=== PATIENT | male | born 1975 | race Caucasian/White ===

== ENCOUNTER 2016-12-19 07:33 | Emergency (ER) | payer BC, MEDICAID ==
[~2016-12-19] VITALS: Ht 182.9 cm; Wt 133.2 kg
[2016-12-19 08:28] VITALS: BP 136/94
== END 2016-12-19 08:42 | disposition home or self-care (01) ==
LOC: ED 07:37
DX: S46.911A Strain of unspecified muscle, fascia and tendon at shoulder and upper arm level, right arm, initial encounter (principal); S29.012A Strain of muscle and tendon of back wall of thorax, initial encounter; X50.9XXA Other and unspecified overexertion or strenuous movements or postures, initial encounter; Y93.89 Activity, other specified; Y92.009 Unspecified place in unspecified non-institutional (private) residence as the place of occurrence of the external cause
CPT/HCPCS: 73030; 99283

== ENCOUNTER → 2016-12-23 | Outpatient (CLI) | payer BC | LOC: RAD 07:10 | PROVIDERS: ATTEND Physician Assistant Surgical | DX: Z00.00 Encounter for general adult medical examination without abnormal findings (principal) | CPT/HCPCS: 70140 ==

== ENCOUNTER 2017-02-09 13:00 | Outpatient (RCR) | payer BC ==
--- NOTE | 2017-01-09 13:24 | PT/OT/ST INITIAL EVALUATION ---
Department of Health and Human Services Form Approved [facility] Care Financing Administration OMB No. [id number] PLAN OF CARE/ASSESSMENT FOR OUTPATIENT REHABILITATION (Complete for Initial Claims Only) 1. PATIENT'S NAME Bayron Corona Sr. 2. ACC # [id number] 3. HICN NA 4. PROVIDER NO. [id number] 5. TYPE: PT 6. PRIOR HOSPITALIZATION NA 7. PRIMARY DX S46.011A-traumatic tear of the right rotator cuff 8. SECONDARY DX NA 9. ONSET DATE 12/18/2016 10. REFERRAL DATE 12/27/2016 11. SOC. DATE 12/29/2016 12. TIME OF EVAL 16:25 12. REFERRING PHYSICIAN PORSCHE Rizvi with Dr. Jose Ashby 13. CHARGES/UNITS Evaluation [address] [place] [address] [place] [address] iontophoresis 14. G CODES NA 15. PRIOR LEVEL OF FUNCTION; PERTINENT HISTORY (Prior therapy results, reason for referral.) S: Prior to therapy, the patient consented to today's evaluation and treatment. The patient is a 41-year-old male referred to therapy by PORSCHE Rizvi following a traumatic right rotator cuff tear. The patient reports on 12/18/2016, he was up on a ladder at home, his arm got pulled back overhead, and then snapped back with a 40-pound weight. He did hear a pop per his report. The patient would like to avoid surgery if possible. He did undergo an MRI of the right shoulder, which revealed a traumatic tear of the right supraspinatus tendon. The patient was in a sling for the first week and is no longer wearing this sling at this time. Primary Complaint: The patient's primary complaint at this time is impaired strength at the right hand as he has been able to regain full range of motion. 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 Current level of function: The patient did return to light duty this week; however, he is to avoid any heavy lifting overhead. Pain level: Current pain level is 2/10 at rest. The pain increases to 3 to 5/10 with activity present just proximal to the right acromion. Aggravating factors: The pain is aggravated by moving his shoulder out to the side or with functional external rotation. He denies any benefit from ice. Relieving factors: The pain is improved by using [place]. Past medical history: The patient had a left rotator cuff tear 6 years ago, which he was able to improve without surgical intervention, history of an injection in the right shoulder. He does note that he has been able to pop his shoulders out of socket bilaterally since he was a child. Current medications: The patient is taking [place], atorvastatin, tramadol and Flexeril. Activity level: Mid range. Personal health rating: Fair Patient's Goal: The patient's goal for physical therapy is to be able to go back and do his job again without limitations. 16. INITIAL ASSESSMENT/SAFETY PRECAUTIONS/MEDICAL COMPLICATIONS (Level of function at start of care. Be specific, use objective measures, list problems.) O: APPEARANCE AND OBSERVATION: Observation of the patient's posture reveals mild forehead positioning of the right humeral head in the socket. The patient does have significant muscle tone throughout which does appear to be normal for this individual. The patient demonstrates poor scapular stabilization with right shoulder movement, however, no significant scapular winging or tilting noted. PALPATION: Tenderness to palpation of the right parascapular musculature greatest at the mid trapezii and the rhomboids. RANGE OF MOTION/FLEXIBILITY: Cervical rotation is limited by 25% bilaterally. Flexion and extension are normal. Shoulder flexion on the right is 180 degrees, left is 180 degrees. Abduction on the right is 180 degrees and painful. Left 180 degrees. Bilateral shoulder internal and external rotation is equal and functional bilaterally, however, pain reported with right shoulder movements. STRENGTH: Bilateral shoulder flexion and abduction strength 5/5 from shoulder height down. Internal rotation strength on the right 4+/5, left 4+/5. Bilateral external rotation 5/5 . Bilateral flexion and extension of the elbow 5/5. TODAY'S TREATMENT: Consisted of educating the patient on the evaluation and the recommended treatment plan. Initiated an upper extremity strengthening program consisting of parascapular strengthening. 17. 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 He demonstrates poor concentric control of the right shoulder, as well as pain around the right shoulder and parascapular region. The patient does demonstrate mild rotator cuff weakness, greatest in shoulder internal and external rotation and poor scapular stabilization with upper extremity movements. The patient is currently on light duty at work , but would like to return to full duty as he progresses with muscle strength. OUTCOME ASSESSMENT: The patient scores a 47.7% disability on the QuickDASH index. SHORT TERM GOALS X4 WEEKS: 1. The patient will improve bilateral shoulder internal and external rotation to be 5/5. 2. The patient will demonstrate the ability to lift up to 20 pounds with proper scapular stabilization shoulder height or lower. 3. The patient will report pain no greater than a 2/10 with all right shoulder movement and not have to rely on pain medication. 4. The patient will improve his ability to perform overhead lifting tasks as recommended by patient's physician up to 40 pounds to be able to return to work with full duty. P: Plan to see this patient 2 times a week for 4 weeks to address poor scapular stabilization and right shoulder pain and muscle tightness around the parascapular region. Therapeutic interventions will include modalities as needed to address pain and muscle tightness, therapeutic exercise emphasizing proper scapular stabilization with shoulder movements, as well as progressive strengthening as the patient tolerates. Functional training, including work related tasks, neuromuscular reeducation emphasis on scapular stabilization. The patient was provided a home exercise program and this will be progressed as needed. Thank you for the referral of this patient. 18. FREQUENCY 2 times per week 19. DURATION 4 weeks 20. FUNCTIONAL LEVEL (End of claim period) 21. PHYSICIAN SIGNATURE ? ON FILE OR ENTER HERE: 22. DATE: I certify the need for these services furnished under this plan of care and if for partial hospitalization. 23. CERTIFICATION FROM THROUGH [facility][id number]
[~2017-02-09 13:00] MED LIST: ALBU8.5H6 IH; HYDR-3702 PO; NAPR500T3 PO; NO HOME MEDICATIONS; OSLT75C PO; PRCD5U GT
== END 2017-03-06 11:12 | disposition home or self-care (01) ==
LOC: PT 13:00
PROVIDERS: ATTEND Physician Assistant Surgical
DX: S46.011D Strain of muscle(s) and tendon(s) of the rotator cuff of right shoulder, subsequent encounter (principal); X50.9XXD Other and unspecified overexertion or strenuous movements or postures, subsequent encounter